=== PATIENT | female | born 1975 | race Caucasian/White ===

== ENCOUNTER 2022-05-21 16:06 | Emergency (ER) | payer OTHER ==
[2022-05-21 17:09] VITALS: BP 112/78; PULSE 95
== END 2022-05-21 20:15 | disposition home or self-care (01) ==
LOC: JD.ED 16:06
DX: S22.20XA Unspecified fracture of sternum, initial encounter for closed fracture (principal); F17.210 Nicotine dependence, cigarettes, uncomplicated; Z88.2 Allergy status to sulfonamides; Z79.899 Other long term (current) drug therapy; W18.39XA Other fall on same level, initial encounter
CPT/HCPCS: 36415; 71045; 71045-26; 81001; 84484; 87086; 93005; 99284